=== PATIENT | male | born 1990 | race Caucasian/White ===

== ENCOUNTER 2016-07-19 22:03 | Emergency (ER) | payer BC ==
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
== END 2016-07-20 00:12 | disposition home or self-care (01) ==
LOC: ER 22:03
PROC: 0HQLXZZ Repair Left Lower Leg Skin, External Approach (ICD-10-PCS; principal; 2016-07-19)
DX: S81.032A Puncture wound without foreign body, left knee, initial encounter (principal); S51.032A Puncture wound without foreign body of left elbow, initial encounter; V23.4XXA Motorcycle driver injured in collision with car, pick-up truck or van in traffic accident, initial encounter